=== PATIENT | female | born 1980 | race Caucasian/White ===

== ENCOUNTER 2018-02-25 16:06 | Emergency (ER) | payer OTHER ==
[~2018-02-25] VITALS: Ht 175.3 cm; Wt 118.4 kg
[~2018-02-25 16:06] MED LIST: ALDACTONE25 MG PO; AMITRIPTYLINE H10 M3 PO; ASPIRIN325; ATIVAN1 MG PO; ATORVASTATIN CA40 MG PO; AUGMENTIN 500-1 EACH PO; AUGMENTIN 875875 MG PO; BIAXIN500 MG PO; BUTALB-APAP-CA1 EACH PO; CARISOPRODOL 3350 MG PO; CARVEDILOL25 MG PO; CHILDREN'S ASPI81 M1 PO; COZAAR 50 MG TA50 M2; COZAAR 50 MG TA50 M2 PO; DIFLUCAN150 MG PO; DIPHENHIST50 MG PO; EFFIENT10 MG PO; FLAGYL500 MG PO; FLUCONAZOLE200 MG PO; GRALISE600 MG PO; HUMALOG100 UNIT/2 SUBQ; HYDROXYZINE HCL25 M1 PO; IBUPROFEN 800800 M1; IMITREX 50 MG T50 MG PO; KETAMINE HCL 50 MG/ML; KETAMINE PO; LANTUS SOL100 UNIT/1 SUBQ; LEVAQUIN 250 M250 MG PO; LEVAQUIN 500 M500 M2 PO; LEVEMIR SUBQ; LEXAPRO 10 MG T10 M1 PO; LEXAPRO PO; LIPITOR 20 MG T20 M1 PO; MELATONIN PO; MELATONIN3 MG PO; MELATONIN5 M1 PO; MIRALAX17 GM PO; MOTION RELIEF25 MG PO; NORCO 5-325 TA1 EAC1 PO; NORVASC5 MG PO; NOVOLOG100 UNIT/1; ONDANSETRON HCL4 M2 PO; OPANA10 MG PO; OXYCODONE HCL E10 MG PO; OXYCONTIN10 M1 PO; OXYCONTIN20 M1 PO; PAIN CREAM; PAXIL10 MG PO; PHENADOZ25 MG RC; PHENERGAN 25 MG25 M1 PO; PROMETHAZINE HC25 M2 PO; PROMS25 WY RECTAL; PROTONIX40 M1 PO; REGLAN 10 MG TA10 MG PO; ROCEPHIN 11 GM/1001 IV; SINGULAIR 10 MG10 MG PO; SPIRONOLACTONE25 M1 PO; TOPROL XL100 MG PO; TRANSDERM-SCO1 PATC1 TD; VALIUM5 MG PO; VISTARIL50 MG PO; [UNRECOGNIZED DRUG - OTHER] TOP
[2018-02-25 16:25] VITALS: BP 144/94
[2018-02-25] MEDS ORDERED: CIPRODEX OTIC7.5 ML OTIC (16:46)
[2018-02-25] MEDS ORDERED: VALIUM5 MG PO (16:46)
[2018-02-25] MEDS ORDERED: CEFDINIR300 MG PO (16:46)
== END 2018-02-25 16:58 | disposition home or self-care (01) ==
LOC: M.ERS 16:06
DX: H92.02 Otalgia, left ear (principal); R42 Dizziness and giddiness; I10 Essential (primary) hypertension; G43.909 Migraine, unspecified, not intractable, without status migrainosus; E11.9 Type 2 diabetes mellitus without complications; E66.01 Morbid (severe) obesity due to excess calories; Z88.6 Allergy status to analgesic agent; Z88.5 Allergy status to narcotic agent; Z88.2 Allergy status to sulfonamides; Z88.1 Allergy status to other antibiotic agents

== ENCOUNTER 2018-03-08 05:48 | Emergency (ER) | payer OTHER ==
[~2018-03-08] VITALS: Ht 175.3 cm; Wt 118.4 kg
[~2018-03-08 05:48] MED LIST changes: +CEFDINIR300 MG PO; +CIPRODEX OTIC7.5 ML OTIC
[2018-03-08] MEDS ORDERED: OXYCODONE HCL 55 MG PO (06:23)
[2018-03-08] MEDS ORDERED: OPANA5 MG PO (06:23)
[2018-03-08] MEDS ORDERED: CAMBIA50 MG PO (06:24)
[2018-03-08] MEDS ORDERED: LYRICA 50 MG50 MG PO (06:24)
[2018-03-08] MEDS ORDERED: BUTALB-APAP-CA1 EACH PO (06:25)
[2018-03-08] MEDS ORDERED: AMITRIPTYLINE H25 M3 PO (08:11)
[2018-03-08] MEDS ORDERED: PREDNISONE50 MG PO (08:11)
[2018-03-08 08:51] VITALS: BP 127/74
== END 2018-03-08 08:51 | disposition home or self-care (01) ==
LOC: M.ERS 05:48
DX: G43.909 Migraine, unspecified, not intractable, without status migrainosus (principal); I10 Essential (primary) hypertension; E11.9 Type 2 diabetes mellitus without complications; Z90.49 Acquired absence of other specified parts of digestive tract; Z79.4 Long term (current) use of insulin; Z88.1 Allergy status to other antibiotic agents; Z88.6 Allergy status to analgesic agent; Z88.5 Allergy status to narcotic agent; Z88.8 Allergy status to other drugs, medicaments and biological substances; Z91.041 Radiographic dye allergy status